=== PATIENT | female | born 1995 | race Caucasian/White ===

== ENCOUNTER → 2019-01-11 | Outpatient (CLI) | payer OTHER ==
--- NOTE | 2019-01-11 09:28 | US ---
EXAMINATION TYPE: US abdomen complete DATE OF EXAM: 01/11/2019 COMPARISON: NONE CLINICAL HISTORY: R10.30 Lower abd pain,R10.2 pelvic pain. EXAM MEASUREMENTS: Liver Length: 11.9cm Gallbladder Wall: 0.2m CBD: 0.3 cm Spleen: 7.2m Right Kidney: 10.7 x 4.0 x 5.3cm Left Kidney: 10.4 x 4.7 x 5.0cm Extensive midline bowel gas. Pancreas: Obscured by bowel gas Liver: wnl Gallbladder: wnl Evidence for sonographic Olsen's sign: No CBD: wnl Spleen: limited visualization due to overlying bowel gas Right Kidney: cyst measuring 1.5 x 1.1 x 1.5cm Left Kidney: limited visualization due to overlying bowel gas Upper IVC: wnl Abd Aorta: portion of proximal obscured by bowel gas The liver is homogenous. The intrahepatic portion of the IVC is within normal limits. There is no e vidence of cholelithiasis. Common bile duct is unremarkable. IMPRESSION: 1. Extensive midline bowel gas obscures the pancreas and limits evaluation of the spleen and left kid juanjo as well as proximal abdominal aorta. 2. Benign-appearing 1.5 cm right renal cyst. 3. No sonographic evidence of cholelithiasis nor acute cholecystitis.
--- NOTE | 2019-01-11 10:01 | US ---
EXAMINATION TYPE: US pelvic complete DATE OF EXAM: 01/11/2019 COMPARISON: None CLINICAL HISTORY: R10.30 Lower abd pain,R10.2 pelvic pain. Patient described pain as tenderness during pelvic exam. TECHNIQUE: Transabdominal (TA). Date of LMP: 01/05/19 EXAM MEASUREMENTS: Uterus: 6.6 x 2.8 x 3.5m Endometrial Stripe: 0.4 cm Right Ovary: 1.8 x 1.3 x 1.2 cm Left Ovary: 2.8 x 1.3 x 1.6 cm 1. Uterus: Anteverted wnl 2. Endometrium: wnl 3. Right Ovary: wnl. Physiologic follicular change. 4. Left Ovary: wnl Physiologic follicular change. 5. Bilateral Adnexa: wnl 6. Posterior cul-de-sac: wnl IMPRESSION: Unremarkable pelvic ultrasound.
== END | disposition home or self-care (01) ==
LOC: RADUSWWP 08:06
PROVIDERS: ATTEND Internal Medicine
DX: N28.1 Cyst of kidney, acquired (principal); R10.2 Pelvic and perineal pain; R10.30 Lower abdominal pain, unspecified
CPT/HCPCS: 76700; 76856